=== PATIENT | female | born 1975 | race Caucasian/White ===

== ENCOUNTER → 2016-11-15 | Day surgery (SDC) | payer OTHER ==
--- NOTE | 2016-11-08 09:41 | HP ---
PREOPERATIVE HISTORY AND PHYSICAL EXAM: DATE OF ADMISSION/SURGERY: 11/15/16 ATTENDING SURGEON: Sapna Dao MD PROCEDURE: Right wrist carpal tunnel release. CHIEF COMPLAINT: Tingling and numbness, right hand. HISTORY OF PRESENT ILLNESS: This is a 41-year-old female, who complains of tingling and numbness in her right wrist/hand over the past several months. She is also complaining of pain along with the numbness and tingling. She had a nerve conduction study recently, which showed right moderate carpal tunnel syndrome. She would like to have definitive treatment for this. She recently underwent a left carpal tunnel release and has done very well with that and she is ready to proceed with the right carpal tunnel release. PAST MEDICAL HISTORY: 1. Migraine headaches. 2. Anxiety/depression. 3. Hypercholesterolemia. PAST SURGICAL HISTORY: 1. Left carpal tunnel release. 2. x2. 3. ORIF of right femur in 1995. CURRENT MEDICATIONS: 1. Atorvastatin calcium 10 mg daily. 2. Citalopram hydrobromide 40 mg daily. 3. Loratadine 10 mg daily. 4. Paroxetine HCl 20 mg daily. 5. Rizatriptan benzoate 10 mg daily. 6. Aspirin 81 mg daily. ALLERGIES: No known drug allergies. FAMILY MEDICAL HISTORY: Significant for hypercholesterolemia, breast cancer, cervical cancer, and diabetes. SOCIAL HISTORY: The patient is not currently employed. She is a current smoker and reports smoking about 10 cigarettes per day. She has smoked for the past 31 years. She denies illicit drug use. Reports alcohol use on special occasions. REVIEW OF SYSTEMS: General: Negative for fevers, chills, or night sweats. No known anesthesia problems. HEENT: Positive for migraine headaches. Negative for lightheadedness or syncopal episodes. Integumentary: Negative for abrasions, lesions, or open wounds. Cardiothoracic: Negative for chest pain, palpitations, or edema. Negative for hypertension. Pulmonary: Negative for shortness of breath with exertion, chronic cough, or COPD. GI: Negative for nausea, vomiting, diarrhea, constipation, or GERD. : Negative for nocturia, urinary frequency, urgency, history of UTIs, or kidney problems. Musculoskeletal: Positive for current complaint. Negative for chronic or intermittent back pain or history of fractures. Neurological: Negative for history of seizure, stroke, or epilepsy. Positive for anxiety/depression. Endocrine: Negative for diabetes or thyroid issues. Hematologic: Negative for easy bruising, anemia, excessive bleeding, or history of DVT. Infectious Disease: Negative for history of MRSA, hepatitis C, or HIV. PHYSICAL EXAMINATION GENERAL: A well-developed, well-nourished 41-year-old female, in no acute distress. VITAL SIGNS: Height 5 feet 2 inches, weight 160 pounds, pulse rate 94, and blood pressure 92/57. HEENT: Normocephalic, atraumatic. Pupils are equal, round, and reactive to light and accommodation. Extraocular movements are intact. Throat is clear. NECK: Supple. No palpable lymph nodes. PULMONARY: Lungs are clear to auscultation bilaterally. No wheezes, rales, or rhonchi. CARDIOTHORACIC: Regular rate and rhythm. S1, S2. No murmurs, rubs, or gallops. No edema. ABDOMEN: Positive bowel sounds. Soft and nontender. MUSCULOSKELETAL: On exam of the right upper extremity, there is a positive Tinel's sign and median nerve compression test at the wrist. There is a positive Phalen test. No thenar wasting noted, but some weakness with thumb abduction. The patient has good range of motion in her wrist and can make a full fist and sensation is intact to light touch. NEUROLOGICAL: Alert and oriented x3. Cranial nerves II through XII are intact. Sensation is intact to light touch. DIAGNOSTIC STUDIES/LAB DATA: EMG/nerve conduction study shows moderate median neuropathy at the right wrist. IMPRESSION: Right carpal tunnel syndrome. PLAN/RECOMMENDATIONS: The patient is scheduled to undergo a right wrist carpal tunnel release with Dr. Dao on 11/15/16. She will return to the office in 10 to 14 days postop for followup and suture removal. A prescription for Ultracet was e- scribed to the patient's pharmacy for postoperative pain management. IRVING HEWITT [id number]/[facility] #: [id number] MTDMirta
[~2016-11-15] MED LIST: Buffered Lidocaine 1% SYR 3ML* 3 ML/SYR SYRINGE INTRADERM ONE; Buffered Lidocaine 1% SYR 3ML* 3 ML/SYR SYRINGE ONE; Lidocaine 1% INJ* 10 MG/ML 30 ML SDV ONE; Propofol* 10 MG/ML 20 ML BTL IV PUSH ONE
[2016-11-15 12:42] VITALS: BP 93/64
--- NOTE | 2016-11-15 20:51 | OP ---
DATE OF OPERATION: 11/15/16 [facility] DATE OF : 79 SURGEON: Sapna Dao MD. RETAIL ASSET PROTECTION SPECIALIST: IRVING Huizar. ANESTHESIOLOGIST: Toby Valenzuela MD ANESTHESIA: Local MAC. PRE-OP DIAGNOSIS: Right carpal tunnel syndrome. POST-OP DIAGNOSIS: Right carpal tunnel syndrome. OPERATIVE PROCEDURE: Right carpal tunnel release. INDICATIONS: Virginie is a 41-year-old female with numbness and tingling in the median nerve distribution of her right hand. She presents for right carpal tunnel release. ESTIMATED BLOOD LOSS: Zero. TOURNIQUET TIME: 5 minutes. DESCRIPTION OF PROCEDURE: The patient was brought to the operating room and was given a sedation anesthetic and a local infiltration of 10 cc of 1% plain lidocaine in the palm of her right hand. Skin of her right hand and forearm was prepped and draped in the usual sterile fashion. The hand and forearm were exsanguinated and the tourniquet elevated to 250 mmHg. A longitudinal incision was made in the palm, in line with the ring finger. We dissected through the subcutaneous tissue down to the transverse carpal ligament. The ligament was divided sharply with a knife and then more proximally with the scissors. The nerve was dissected free from the surrounding tissue and there was an area of moderate compression in the mid portion of the ligament. The wound was irrigated and skin edges reapproximated with 4-0 nylon suture. The wound was dressed with Xeroform, 4x4, Webril, and an Regan wrap. The patient tolerated the procedure well and was brought to the recovery room in good condition. [id number]/[facility] #: [id number] MTDD
== END | disposition home or self-care (01) ==
LOC: OREAST 09:17
PROVIDERS: ATTEND Orthopaedic Surgery
DX: G56.01 Carpal tunnel syndrome, right upper limb (principal); F17.200 Nicotine dependence, unspecified, uncomplicated; J45.909 Unspecified asthma, uncomplicated
CPT/HCPCS: J2704

== ENCOUNTER 2017-05-16 18:25 | Emergency (ER) | payer SELFPAY ==
[2017-05-16 18:55] VITALS: BP 92/61
--- NOTE | 2017-05-16 22:36 | UC ---
Chano Yeung Alfonso, scribed for Lonnie Gonzalez MD on 05/16/17 at 1924 . Hand/Wrist HPI - HPI Summary HPI Summary: This patient is a 42 year old F presenting to [facility] with a chief complaint of right wrist pain worse since this morning. Pt rates the sharp pain 7/10 in severity. Symptoms aggravated and alleviated by nothing. Pt reports tingling and swelling of right wrist. Pt is right hand dominant. PMHx of carpel tunnel. PSHx of right wrist surgery (2015). Pt medications reviewed this visit. - History Of Current Complaint Chief Complaint: UCGeneralIllness Stated Complaint: WRIST INJURY Time Seen by Provider: 05/16/17 18:51 Hx Obtained From: Patient Onset/Duration: Sudden Onset, Lasting Days - Yesterday, Worse Since - yesterday Severity Initially: Mild Severity Currently: Moderate Pain Intensity: 7 Pain Scale Used: 0-10 Numeric Character Of Pain: Sharp Alleviating: Nothing Associated Signs And Symptoms: Positive: Swelling, Numbness/Tingling - Allergies/Home Medications Allergies/Adverse Reactions: Allergies Allergy/AdvReac Type Severity Reaction Status Date / Time Lactose Intolerance (GI) Allergy RED Verified 05/16/17 18:42 BLOTCHES NSAIDs Allergy Unknown Verified 05/16/17 18:42 Reaction Details PMH/Surg Hx/FS Hx/Imm Hx - Surgical History Surgical History: Yes Surgery Procedure, Year, and Place: cyst removed from RIGHT ovary-AGE 18-PA. 2 c sections-TUBAL LIGATION- WITH 2ND . RIGHT FEMUR FRACTURE-REPAIR WITH RODDING-PA. LEFT WRIST CARPAL TUNNEL RELEASE-07/2016 - Family History Known Family History: Positive: Other - Cancer - Social History Alcohol Use: Occasionally Substance Use Type: None Smoking Status (MU): Light Every Day Tobacco Smoker Amount Used/How Often: 5 CIGARETTES PER DAY X 31 YEARS Have You Smoked in the Last Year: Yes Review of Systems Constitutional: Other - Negative fever Musculoskeletal: Other: - Positive right wrist swelling and right wrist pain. Neurological: Other - Positive tingling right hand All Other Systems Reviewed And Are Negative: Yes Physical Exam Triage Information Reviewed: Yes Appearance: Well-Appearing, No Pain Distress Vital Signs: Initial Vital Signs Temp 98 F 05/16/17 18:44 Pulse 86 05/16/17 18:44 Resp 18 05/16/17 18:44 BP 92/61 05/16/17 18:44 Pulse Ox 97 05/16/17 18:44 Vital Signs Reviewed: Yes Eyes: Positive: Other: - EOMI and ISHA ENT: Positive: Normal ENT inspection Neck: Positive: Supple, Nontender Respiratory: Positive: Chest non-tender, Lungs clear Cardiovascular: Positive: RRR Abdomen Description: Positive: Nontender, Soft Bowel Sounds: Positive: Present Musculoskeletal: Positive: Other: - Positive tinel's of right wrist. Good capillary refill at right wrist. Elbow Full ROM. Neurological: Positive: Alert Psychological: Positive: Age Appropriate Behavior Skin Exam: Normal Hand/Wrist Course/Dx - Course Course Of Treatment: PATIENT TO WEAR HER BRACE/ICE ELEVATED. PAIN RX. F/U PMD. - Differential Dx/Diagnosis Provider Diagnoses: RIGHT WRIST SPRAIN/CARPAL TUNNEL SYNDROME Discharge - Discharge Plan Condition: Stable Disposition: HOME Prescriptions: HYDROcodone/ACETAMIN 5-325 MG* [[place] 5-325 TAB*] 1 tab PO Q4H PRN #20 tab MDD 6 PRN Reason: Pain Patient Education Materials: Tendinitis (ED), Wrist Sprain (ED) Forms: *Work Release Referrals: [facility] [Outside] [facility] [Outside] Additional Instructions: FOLLOW UP WITH YOUR DOCTOR. WEAR YOUR WRIST BRACE. RETURN TO THE EMERGENCY DEPARTMENT FOR ANY WORSENING OF YOUR CONDITION OR QUESTIONS OR CONCERNS. The documentation as recorded by the Chano danielle Alfonso accurately reflects the service I personally performed and the decisions made by me, Lonnie Gonzalez MD.
== END 2017-05-16 19:25 | disposition home or self-care (01) ==
LOC: UCEAST 18:25
DX: S63.511A Sprain of carpal joint of right wrist, initial encounter (principal); G56.01 Carpal tunnel syndrome, right upper limb
CPT/HCPCS: 99212; G0463

== ENCOUNTER 2017-11-13 08:26 | Emergency (ER) | payer SELFPAY ==
--- OUTSIDE RECORDS SUMMARY | 2017-11-13 08:37 | XMS REPORT ---
:1975 External Reference #:[id number] Author Organization [facility] Address [address] [facility]/[address] [place] [address] Phone [phone] Care Team Providers Name Role Phone Shubham ParrP Care Team Information Radiagraph Operator Unavailable Payers Type Date Identification Numbers Payment Provider Subscriber Commercial Effective: Policy Number: [facility] Virginie Borrego Chava 2017 [id number] PayID: [id number] [address] [place] [address] Medigap Part B Policy Number: [id number] Medicaid/[employer] Virginie Borrego Larsen PayID: [id number] [address] [place] [address] Problems Date Description Provider Status Onset: 09/01/2017 Anxiety state Shubham Parr Active Onset: 09/01/2017 Tobacco user Shubham Parr Active Onset: 09/01/2017 Allergic rhinitis Shubham Parr Active Onset: 09/01/2017 Asthma without status asthmaticus Shubham Parr Active Onset: 09/01/2017 Chronic obstructive lung disease Shubham Parr Active Social History Type Date Description Comments Smoking Heavy tobacco smoker (more than 10 cigarettes/day) Allergies, Adverse Reactions, Alerts Date Description Reaction Status Severity Comments 09/01/2017 NKDA active Medications Medication Date Status Form Strength Qnty SIG Indications Ordering Provider Depo-Provera 10/20/ Active Suspension 150mg/ml 1units 1cc every Z30.42 Virgil, 2017 3 mo Jennifer Hernadez M.D. Gentamicin 10/01/ Active Solution 0.3% 10cc 2 drops H10.89 Virgil, Sulfate 2017 both eyes Ahmad M., three M.D. times a day for 5-7 days Atorvastatin 00/ Active Tablets 40mg 90tabs take one E78.2 Virgil, Calcium 0000 tablet by Ahmad M., mouth at M.D. bedtime Albuterol / Active Nebulizer (2.5mg/3ML use with J45.909 Unknown Sulfate 0000 ) 0.083% nebulizer q4 hours as needed for cough/sob J30.1 Loratadine Active Capsules 10mg 90caps 1 by mouth Virgil, Ahmad every at M., M.D. bedtime Paroxetine HCL Active Tablets 20mg 90tabs tab one by F41.9 Virgil, Ahmad mouth every M., M.D. in the morning Prednisone Active Tablets 20mg 90tabs 1 by mouth Virgil, Ahmad every day M., M.D. Vital Signs Date Vital Result Comment 10/22/2017 BP Systolic 110 mmHg BP Diastolic 68 mmHg Height 62 inches 5'2" Weight 159.00 lb BMI (Body Mass Index) 29.1 kg/m2 Heart Rate 89 /min Respiratory Rate 18 /min 10/20/2017 BP Systolic 110 mmHg BP Diastolic 62 mmHg Height 62 inches 5'2" Weight 152.00 lb BMI (Body Mass Index) 27.8 kg/m2 Heart Rate 91 /min Respiratory Rate 16 /min 10/01/2017 BP Systolic 122 mmHg BP Diastolic 70 mmHg Weight 150.00 lb Heart Rate 88 /min Respiratory Rate 16 /min 09/01/2017 BP Systolic 80 mmHg BP Diastolic 128 mmHg Weight 150.00 lb Heart Rate 86 /min Respiratory Rate 16 /min Results Test Date Test Result H/L Range Note Laboratory test 10/20/2017 Hepatitis B Surface Nonreactive Nonreactive 1 finding Ag Mumps Igg <pending> Rubeola Measles Igg AB <pending> Rubella Screen Immune IU/mL Immune 2 Varicella Zoster Igg AB <pending> CBC Auto Diff 09/01/2017 White Blood Count 9.7 10^3/uL 3.5-10.8 Red Blood Count 4.54 10^6/uL 4.0-5.4 Hemoglobin 15.1 g/dL 12.0-16.0 Hematocrit 44 % 35-47 Mean Corpuscular Volume 96 fL 80-97 Mean Corpuscular Hemoglobin 33 pg High 27-31 Mean Corpuscular HGB Conc 35 g/dL 31-36 Red Cell Distribution Width 13 % 10.5-15 Platelet Count 260 10^3/uL 150-450 Mean Platelet Volume 9 um3 7.4-10.4 Abs Neutrophils 5.6 10^3/uL 1.5-7.7 Abs Lymphocytes 3.1 10^3/uL 1.0-4.8 Abs Monocytes 0.8 10^3/uL 0-0.8 Abs Eosinophils 0.1 10^3/uL 0-0.6 Abs Basophils 0.1 10^3/uL 0-0.2 Abs Nucleated RBC 0 10^3/uL Granulocyte % 58.5 % 38-83 Lymphocyte % 31.8 % 25-47 Monocyte % 7.9 % 1-9 Eosinophil % 1.1 % 0-6 Basophil % 0.7 % 0-2 Nucleated Red Blood Cells % 0 Comp Metabolic Panel 09/01/2017 Sodium 138 mmol/L 133-145 Potassium 4.0 mmol/L 3.5-5.0 Chloride 104 mmol/L 101-111 Co2 Carbon Dioxide 30 mmol/L 22-32 Anion Gap 4 mmol/L 2-11 Glucose 105 mg/dL High 70-100 Blood Urea Nitrogen 12 mg/dL 6-24 Creatinine 1.11 mg/dL High 0.51-0.95 BUN/Creatinine Ratio 10.8 8-20 Calcium 9.7 mg/dL 8.6-10.3 Total Protein 6.8 g/dL 6.4-8.9 Albumin 4.2 g/dL 3.2-5.2 Globulin 2.6 g/dL 2-4 Albumin/Globulin Ratio 1.6 1-3 Total Bilirubin 0.30 mg/dL 0.2-1.0 Alkaline Phosphatase 51 U/L 34-104 Alt 12 U/L 7-52 Ast 15 U/L 13-39 Egfr Non- 54.4 >60 Egfr 70.0 >60 3 Laboratory test finding 09/01/2017 Hemoglobin A1c (Glyco HGB) 5.4 % 4.0- 5.6 4 Lipid Profile 09/01/2017 Triglycerides 243 mg/dL 5 (Trig/Chol/HDL) Cholesterol 253 mg/dL 6 HDL Cholesterol 38.0 mg/dL 7 LDL Cholesterol 166 mg/dL 8 Laboratory test finding 09/01/2017 TSH (Thyroid Stim Horm) 1.56 mcIU/mL 0.34-5.60 9 1 [id number] 2 [id number] 3 Because ethnic data is not always readily available, this report includes an eGFR for both -Americans and non- Americans. The National Kidney Disease Education Program (NKDEP) does not endorse the use of the MDRD equation for patients that are not between the ages of 18 and 70, are , have extremes of body size, muscle mass, or nutritional status, or are non- or non-. According to the National Kidney Foundation, irrespective of diagnosis, the stage of the disease is based on the level of kidney function: Stage Description GFR(mL/min/1.73 m(2)) 1 Kidney damage with normal or decreased GFR 90 2 Kidney damage with mild decrease in GFR 60-89 3 Moderate decrease in GFR 30-59 4 Severe decrease in GFR 15-29 5 Kidney failure <15 (or dialysis) 4 Therapeutic target for the treatment of diabetes mellitus patients is <7% HBA1C, and in selective patients <6.0%. Please refer to [place] Diabetes Association diabetic care guidelines for further information. 5 Desirable: <150 Borderline High: 150-199 High: 200-499 Very High: >500 6 Desirable: <200 Borderline High: 200-239 High: >239 7 Low: <40 Desirable: 40-60 High: >60 8 Desirable: <100 Near Optimal: 100-129 Borderline High: 130-159 High: 160-189 Very High: >189 9 [id number] Procedures Date CPT Code Description Status 10/22/2017 11195 Injection DX/Therapeutic/Prophy Completed 09/01/2017 96858 Visual Screening Test Completed Encounters Type Date Location Provider CPT E/M Dx Office Visit 10/22/2017 10:15a [facility] Shubham Parr [facility] [address] Z30.42 F17.210 Office Visit 10/20/2017 2:00p [facility] Shubham Parr [facility] [address] Z01.84 Z30.42 Office Visit 10/01/2017 11:00a [facility] Shubham Parr [facility] [address] H10.89 E78.2 Office Visit 09/01/2017 3:15p [facility] Shubham Parr [facility] [address] Z00.01 Z00.01 F41.9 J45.909 J30.1 F17.210 Z12.39 E78.2 Plan of Care 10/22/2017 [facility] Encounter for surveillance of injectable contraceptiveComments:HCG NEG\\DEPO INJ GIVEN IM R HVTCMJTJ55.210 Nicotine dependence, cigarettes, uncomplicatedComments:LONG DISCUSSION RE SMOKING AND CONTRACEPTION--PT STILL REFUSES TO QUIT
--- OUTSIDE RECORDS SUMMARY | 2017-11-13 08:38 | XMS REPORT ---
:1975 External Reference #:[id number] Author Organization [facility] Address [address] [facility]/[address] [place] [address] Phone [phone] Care Team Providers Name Role Phone Shubham ParrP Care Team Information Deputy Court Unavailable Payers Type Date Identification Numbers Payment Provider Subscriber Commercial Effective: Policy Number: [facility] Virginie Borrego Chava 2017 [id number] PayID: [id number] [address] [place] [address] Medigap Part B Policy Number: [id number] Medicaid/[employer] Virginie Borrego Larsen PayID: [id number] [address] [place] [address] Problems Date Description Provider Status Onset: 09/01/2017 [...] M.D. Vital Signs Date Vital Result Comment 10/20/2017 BP Systolic 110 mmHg BP Diastolic [...] Note Laboratory test 10/20/2017 Hepatitis B Surface <pending> finding Ag Mumps Igg <pending> Rubeola Measles Igg AB <pending> Rubella Screen <pending> Varicella Zoster Igg AB <pending> CBC Auto [...] Egfr Non- 54.4 >60 Egfr 70.0 >60 1 Laboratory test finding 09/01/2017 Hemoglobin A1c (Glyco HGB) 5.4 % 4.0- 5.6 2 Lipid Profile 09/01/2017 Triglycerides 243 mg/dL 3 (Trig/Chol/HDL) Cholesterol 253 mg/dL 4 HDL Cholesterol 38.0 mg/dL 5 LDL Cholesterol 166 mg/dL 6 Laboratory test finding 09/01/2017 TSH (Thyroid Stim Horm) 1.56 mcIU/mL 0.34-5.60 7 1 Because ethnic data is not always readily [...] 15-29 5 Kidney failure <15 (or dialysis) 2 Therapeutic target for the treatment of diabetes mellitus patients is <7% HBA1C, and in selective patients <6.0%. Please refer to [place] Diabetes Association diabetic care guidelines for further information. 3 Desirable: <150 Borderline High: 150-199 High: 200-499 Very High: >500 4 Desirable: <200 Borderline High: 200-239 High: >239 5 Low: <40 Desirable: 40-60 High: >60 6 Desirable: <100 Near Optimal: 100-129 Borderline High: 130-159 High: 160-189 Very High: >189 7 [id number] Procedures Date CPT Code Description Status 09/01/2017 64820 Visual Screening Test Completed Encounters Type Date Location Provider CPT E/M Dx Office Visit 10/20/2017 2:00p [facility] Shubham Parr 20032 Z01.84 Z30.42 Office Visit 10/01/2017 11:00a [facility] Shubham Parr 57954 H10.89 E78.2 Office Visit 09/01/2017 3:15p [facility] Shubham Parr 49142 Z00.01 Z00.01 F41.9 J45.909 J30.1 F17.210 Z12.39 E78.2 Plan of Care Future Appointment(s):10/22/2017 10:15 am - Shubham Parr at [facility] - Keshav Shubham FNPZ01.84 Encounter for antibody response examinationComments:LABS GHDYXJ37.42 Encounter for surveillance of injectable contraceptiveNew Medication:Depo-Provera 150 mg/ml
--- OUTSIDE RECORDS SUMMARY | 2017-11-13 08:38 | XMS REPORT ---
:1975 External Reference #:[id number] Author Organization [facility] Address [address] [facility]/[address] [place] [address] Phone [phone] Care Team Providers Name Role Phone Shubham ParrP Care Team Information Crystal Cutter Unavailable Payers Type Date Identification Numbers Payment Provider Subscriber Commercial Effective: Policy Number: [facility] Virginie Borrego Chava 2017 [id number] PayID: [id number] [address] [place] [address] Medigap Part B Policy Number: [id number] Medicaid/[employer] Virginie Borrego Larsen PayID: [id number] [address] [place] [address] Problems Date Description Provider Status Onset: 09/01/2017 [...] in selective patients <6.0%. Please refer to [place] Diabetes Association diabetic care guidelines for further information. 3 Desirable: <150 Borderline High: 150-199 High: 200-499 Very High: >500 4 Desirable: <200 Borderline High: 200-239 High: >239 5 Low: <40 Desirable: 40-60 High: >60 6 Desirable: <100 Near Optimal: 100-129 Borderline High: 130-159 High: 160-189 Very High: >189 7 [id number] Procedures Date CPT Code Description Status 09/01/2017 43778 Visual Screening Test Completed Encounters Type Date Location Provider CPT E/M Dx Office Visit 10/20/2017 2:00p [facility] Shubham Parr [address]8875 Z01.84 Z30.42 Office Visit 10/01/2017 11:00a [facility] Shubham Parr 17250 H10.89 E78.2 Office Visit 09/01/2017 3:15p [facility] Shubham Parr 30623 Z00.01 Z00.01 F41.9 J45.909 J30.1 F17.210 Z12.39 E78.2 Plan of Care Future Appointment(s):10/22/2017 10:15 am - Shubham Parr at [facility] - Shubham Parr FNPZ01.84 Encounter for antibody response examinationComments:LABS ZARFNH85.42 Encounter for surveillance of injectable contraceptiveNew Medication:Depo-Provera 150 mg/mlComments:will rto next week for injection
[2017-11-13 08:41] VITALS: BP 111/58
--- NOTE | 2017-11-13 09:52 | UC ---
Hand/Wrist HPI - HPI Summary HPI Summary: 42 yo female was working last PM [employer] sprang back injuring her wrist heard a pop now with decreased ROM hx of carpal tunnel surgery she is right handed - History Of Current Complaint Chief Complaint: UCUpperExtremity Stated Complaint: WRIST INJURY Time Seen by Provider: 11/13/17 09:18 Hx Obtained From: Patient Hx Last Menstrual Period: 2 months ago depo Onset/Duration: Sudden Onset, Lasting Hours Severity Initially: Severe Severity Currently: Mild Pain Intensity: 3 - worse with movement Pain Scale Used: 0-10 Numeric Character Of Pain: Dull, Aching, Throbbing Aggravating Factor(s): Movement, Lifting, Pulling Alleviating Factor(s): Rest Associated Signs And Symptoms: Positive: Swelling Related History: Occupational Injury, Dominant Hand Right - Allergies/Home Medications Allergies/Adverse Reactions: Allergies Allergy/AdvReac Type Severity Reaction Status Date / Time Lactose Intolerance (GI) Allergy RED Verified 05/16/17 18:42 BLOTCHES NSAIDs Allergy Unknown Verified 11/13/17 08:41 Reaction Details PMH/Surg Hx/FS Hx/Imm Hx Endocrine History: Dyslipidemia Respiratory History: Asthma - Surgical History Surgical History: Yes Surgery Procedure, Year, and Place: cyst removed from RIGHT ovary-AGE 18-PA. 2 c sections-TUBAL LIGATION- WITH 2ND . RIGHT FEMUR FRACTURE-REPAIR WITH RODDING-PA. LEFT WRIST CARPAL TUNNEL RELEASE-07/2016 - Family History Known Family History: Positive: Hypertension, Other - Cancer - Social History Alcohol Use: Occasionally Substance Use Type: None Smoking Status (MU): Light Every Day Tobacco Smoker Amount Used/How Often: 5 CIGARETTES PER DAY X 31 YEARS Have You Smoked in the Last Year: Yes Review of Systems Constitutional: Negative Skin: Negative Eyes: Negative ENT: Negative Respiratory: Negative Cardiovascular: Negative Gastrointestinal: Negative Genitourinary: Negative Motor: Negative Neurovascular: Negative Musculoskeletal: Arthralgia Neurological: Negative Psychological: Negative Is Patient Immunocompromised?: No All Other Systems Reviewed And Are Negative: Yes Physical Exam Triage Information Reviewed: Yes Appearance: Well-Appearing, No Pain Distress, Well-Nourished Vital Signs: Initial Vital Signs Temp 97.7 F 11/13/17 08:36 Pulse 85 11/13/17 08:36 Resp 20 11/13/17 08:36 BP 111/58 11/13/17 08:36 Pulse Ox 100 11/13/17 08:36 Vital Signs Reviewed: Yes Eyes: Positive: Conjunctiva Clear ENT: Positive: Hearing grossly normal. Negative: Nasal congestion, Nasal drainage, Trismus, Hoarse voice Dental: Positive: Other: - many missing teeth Neck: Positive: Supple, Nontender, No Lymphadenopathy Respiratory: Positive: Lungs clear, Normal breath sounds, No respiratory distress Cardiovascular: Positive: RRR, No Murmur Musculoskeletal: Positive: ROM Limited @ - right wrist, Edema @ - dorum or wrist Neurological: Positive: Alert Psychological Exam: Normal Skin Exam: Normal Diagnostics - Radiology No standard instances Xray Interpretation: No Acute Changes Radiology Interpretation Completed By: Radiologist Hand/Wrist Course/Dx - Differential Dx/Diagnosis Provider Diagnoses: right wrist sprain Discharge - Discharge Plan Condition: Stable Disposition: HOME Patient Education Materials: Wrist Sprain (ED) Forms: *Work Release Referrals: Terrance Posey MD [Medical Doctor] - As Soon As Possible
--- NOTE | 2017-11-13 10:01 | RAD ---
INDICATION: Posterior RIGHT wrist pain following pulling injury. Previous carpal tunnel surgery. COMPARISON: May 19, 2017 TECHNIQUE: AP, lateral, and oblique views RIGHT wrist. REPORT: Healed diaphyseal fracture of the fifth metacarpal with approximate 30 degrees apex dorsal ulnar angulation. No acute fracture evident. Normal articular alignment and preserved joint spaces. Unremarkable soft tissue contours. IMPRESSION: No radiographic evidence for acute RIGHT wrist injury.
== END 2017-11-13 10:02 | disposition home or self-care (01) ==
LOC: UCEAST 08:26
DX: S63.501A Unspecified sprain of right wrist, initial encounter (principal); X58.XXXA Exposure to other specified factors, initial encounter; Y93.E5 Activity, floor mopping and cleaning; Y92.9 Unspecified place or not applicable; Y99.0 Civilian activity done for income or pay; E78.5 Hyperlipidemia, unspecified; J45.909 Unspecified asthma, uncomplicated; Z88.6 Allergy status to analgesic agent; F17.210 Nicotine dependence, cigarettes, uncomplicated
CPT/HCPCS: 99213; G0463

== ENCOUNTER 2018-11-07 13:11 | Emergency (ER) | payer OTHER ==
[2018-11-07 13:47] VITALS: BP 116/62
--- NOTE | 2018-11-07 14:00 | UC ---
UC General HPI - HPI Summary HPI Summary: pt c/o 3 week hx itchy rash to webs of fingers, backs or forearms and now some around her ankle. describes it as very itchy. self tx with benadryl and calamine with no relief. no family with rash. 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 denies new exposures. no current/recent illness. - History of Current Complaint Chief Complaint: UCSkin Stated Complaint: SKIN COMPLAINT Time Seen by Provider: 11/07/18 13:54 Hx Obtained From: Patient Hx Last Menstrual Period: 2 months ago depo Onset/Duration: Gradual Onset Timing: Constant Pain Intensity: 6 Associated Signs & Symptoms: Negative: Edema, Fever - Allergy/Home Medications Allergies/Adverse Reactions: Allergies Allergy/AdvReac Type Severity Reaction Status Date / Time lactose Allergy Rash Verified 11/07/18 13:46 NSAIDS (Non-Steroidal Allergy See Comment Verified 11/07/18 13:46 Anti-Inflamma PMH/Surg Hx/FS Hx/Imm Hx - Additional Past Medical History Additional PMH: allergies Respiratory History: COPD Psychological History: Depression - Surgical History Surgical History: Yes Surgery Procedure, Year, and Place: cyst removed from RIGHT ovary-AGE 18-[place]. 2 c sections-TUBAL LIGATION- WITH 2ND . RIGHT FEMUR FRACTURE-REPAIR WITH R[facility]ING-PA. LEFT WRIST CARPAL TUNNEL RELEASE-07/2016 - Family History Known Family History: Positive: Hypertension, Other - Cancer - Social History Alcohol Use: None Substance Use Type: None Smoking Status (MU): Light Every Day Tobacco Smoker Amount Used/How Often: 5 CIGARETTES PER DAY X 31 YEARS Have You Smoked in the Last Year: Yes Review of Systems All Other Systems Reviewed And Are Negative: Yes Constitutional: Positive: Negative Skin: Positive: Rash Eyes: Positive: Negative ENT: Positive: Negative Respiratory: Positive: Negative Cardiovascular: Positive: Negative Gastrointestinal: Positive: Negative Genitourinary: Positive: Negative Motor: Positive: Negative Neurovascular: Positive: Negative Musculoskeletal: Positive: Negative Neurological: Positive: Negative Psychological: Positive: Negative Physical Exam Triage Information Reviewed: Yes Appearance: Well-Appearing Vital Signs: Initial Vital Signs Temp 98.3 F 11/07/18 13:43 Pulse 106 11/07/18 13:43 Resp 20 11/07/18 13:43 BP 116/62 11/07/18 13:43 Pulse Ox 100 11/07/18 13:43 Vital Signs Reviewed: Yes Eyes: Positive: Conjunctiva Clear ENT: Positive: Normal ENT inspection Neck: Positive: Supple Respiratory: Positive: Lungs clear, No respiratory distress Cardiovascular: Positive: RRR Abdomen Description: Positive: Nontender Musculoskeletal: Positive: ROM Intact Neurological: Positive: Alert Psychological: Positive: Age Appropriate Behavior Skin Exam: Normal Skin: Positive: Rashes - pt has a pink to red raised areas with diffuse mild overlying excoriations to webs of fingers, backs of hand and forarms plus few areas on ankles. Course/Dx - Differential Dx - Multi-Symptom Differential Diagnoses: Other - no concern for bacterial, viral or fungal infections. distribution raises concern for scabies and a contact dermatitis as well. will tx po steroid, topical elimite and dermatology f/u - Diagnoses Provider Diagnosis: Rash Discharge - Sign-Out/Discharge Documenting (check all that apply): Patient Departure All imaging exams completed and their final reports reviewed: No Studies - Discharge Plan Condition: Stable Disposition: HOME Prescriptions: Permethrin [Elimite] 5 % EX ONCE #1 cre PrednisoLONE 3 MG/ML ORAL.SOLU [PrednisoLONE 3 MG/ML 5 ml ORAL.SOLUTION*] 30 mg PO DAILY 5 Days #50 ml Patient Education Materials: Scabies (ED), Acute Rash (ED) Forms: *Work Release Referrals: Lenora Alford [Medical Doctor] - 5 Days - Billing Disposition and Condition Condition: STABLE Disposition: Home - Attestation Statements Provider Attestation: I was available for consult. This patient was seen by the [facility]. The patient was not presented to, seen by, or examined by me. EK
== END 2018-11-07 14:21 | disposition home or self-care (01) ==
LOC: UCCORT 13:11
DX: R21 Rash and other nonspecific skin eruption (principal); Z88.6 Allergy status to analgesic agent; F17.210 Nicotine dependence, cigarettes, uncomplicated
CPT/HCPCS: 99212; G0463